=== PATIENT | male | born 1965 | race Caucasian/White ===

== ENCOUNTER → 2019-11-03 09:59 | Outpatient (BNVA) | payer SELFPAY | PROVIDERS: Family Provider Nurse Practitioner; PCP Nurse Practitioner; Visit Provider Nurse Practitioner | DX: M06.9 Rheumatoid arthritis, unspecified (principal) | CPT/HCPCS: 80053; 85025 ==

== ENCOUNTER → 2020-01-26 17:17 | Outpatient (BNVA) | payer SELFPAY | PROVIDERS: Family Provider Nurse Practitioner; PCP Nurse Practitioner; Visit Provider Nurse Practitioner | DX: M06.9 Rheumatoid arthritis, unspecified (principal); K64.9 Unspecified hemorrhoids; N52.9 Male erectile dysfunction, unspecified | CPT/HCPCS: 85025 ==

== ENCOUNTER → 2020-05-05 16:29 | Outpatient (BNVA) | payer SELFPAY | PROVIDERS: Family Provider Nurse Practitioner; PCP Nurse Practitioner; Visit Provider Nurse Practitioner | DX: M06.9 Rheumatoid arthritis, unspecified (principal) | CPT/HCPCS: 80053; 85025 ==

== ENCOUNTER → 2020-08-01 10:04 | Outpatient (BNVA) | payer SELFPAY | PROVIDERS: Family Provider Nurse Practitioner; PCP Nurse Practitioner; Visit Provider Nurse Practitioner | DX: M06.9 Rheumatoid arthritis, unspecified (principal); K64.9 Unspecified hemorrhoids; N52.9 Male erectile dysfunction, unspecified | CPT/HCPCS: 80053; 85025 ==

== ENCOUNTER → 2020-09-28 11:05 | Outpatient (BNVA) | payer SELFPAY | PROVIDERS: Family Provider Nurse Practitioner; PCP Nurse Practitioner; Visit Provider Nurse Practitioner | DX: M10.9 Gout, unspecified (principal); M06.9 Rheumatoid arthritis, unspecified; R00.2 Palpitations | CPT/HCPCS: 72072; 72100; 73523; 80053; 84443; 84550; 85025; 85651; 86140 ==

== ENCOUNTER 2020-10-12 12:27 | Outpatient (CLI) | payer SELFPAY ==
--- NOTE | 2020-10-12 13:15 | CT_ITS ---
WS: [id number] CT HEAD TECHNIQUE: Noncontrast CT of the head obtained from the skullbase to the vertex. CLINICAL INFORMATION: R41.3 - Other amnesia COMPARISON: None. DLP: 992.[address] scans at [facility] use at least one of these dose optimization techniques: automat ed exposure control; mA and/or kV adjustment per patient size (includes targeted exams where dose is matched to clinical indication); or iterative reconstruction. FINDINGS: No evidence of intracranial hemorrhage or mass effect. Ventricular system and basal cisterns are levin nt. Mild parenchymal volume loss. No extra-axial fluid collections. No evidence of mass or mass effec t. Normal marquez-white differentiation. Paranasal sinuses and mastoid air cells are well aerated. .Normal visualized soft tissues. CT/CT head wo con* [id number] IMPRESSION: 1. No evidence of intracranial hemorrhage or mass effect. 2. Mild parenchymal volume loss. 3. No acute intracranial findings.
== END 2020-10-12 12:28 | disposition home or self-care (01) ==
LOC: RADWPI 12:44
PROVIDERS: PCP Nurse Practitioner; Visit Provider Nurse Practitioner
DX: R41.3 Other amnesia (principal)
CPT/HCPCS: 70450

== ENCOUNTER → 2021-01-10 09:07 | Outpatient (BNVA) | payer SELFPAY | PROVIDERS: PCP Nurse Practitioner; Visit Provider Nurse Practitioner | DX: M51.36 Other intervertebral disc degeneration, lumbar region (principal); M06.9 Rheumatoid arthritis, unspecified | CPT/HCPCS: 80053; 85025; 85651; 86140 ==

== ENCOUNTER → 2021-02-02 11:10 | Outpatient (BNVA) | payer SELFPAY | PROVIDERS: PCP Nurse Practitioner; Visit Provider Internal Medicine | DX: M06.9 Rheumatoid arthritis, unspecified (principal); M51.36 Other intervertebral disc degeneration, lumbar region; Z11.59 Encounter for screening for other viral diseases; Z11.1 Encounter for screening for respiratory tuberculosis; Z87.891 Personal history of nicotine dependence | CPT/HCPCS: 99203; 99204 ==

== ENCOUNTER → 2021-02-24 09:09 | Outpatient (BNVA) | payer SELFPAY | PROVIDERS: PCP Nurse Practitioner; Visit Provider Internal Medicine | DX: M06.9 Rheumatoid arthritis, unspecified (principal); D86.9 Sarcoidosis, unspecified; Z51.81 Encounter for therapeutic drug level monitoring; M32.9 Systemic lupus erythematosus, unspecified | CPT/HCPCS: 80053; 85025; 86480; 86704; 86803; 87340 ==

== ENCOUNTER 2021-03-09 10:49 | Outpatient (CLI) | payer OTHER, SELFPAY ==
--- NOTE | 2021-03-09 10:58 | XR_ITS ---
WS: [id number] Right hand, AP and lateral views, 03/09/2021 Clinical Data: RIGHT HAND PAIN Comparison: None. Findings: No fractures or dislocations are seen. The soft tissues are unremarkable. The joint space s are normal No periarticular demineralization or calcifications are seen. XR/XR hand RT 2V [id number] Impression: Negative right hand.
--- NOTE | 2021-03-09 10:59 | XR_ITS ---
WS: [id number] Cervical spine, 3 views, 03/09/2021 Clinical Data: NECK PAIN Comparison: None. Findings: No compression fractures are seen. There is disc space narrowing at C3-C4, C4-C5, C5-C6 and C6-C7. There is anterior longitudinal ligament calcification and osteophyte spurring at C3-C7. There is no prevertebral soft tissue swelling. The odontoid is unremarkable. The lung apices are normal. T here is minimal calcification in the soft tissue the neck bilaterally which may be in the carotid bif urcations. XR/XR cervical spine 3V* [id number] Impression: 1. Osteoarthritis with degenerative disc narrowing C3-C7. 2. Negative for fracture or dislocation.
== END 2021-03-09 10:50 | disposition home or self-care (01) ==
PROVIDERS: PCP Nurse Practitioner; Visit Provider Dermatology
DX: M79.641 Pain in right hand (principal); M54.2 Cervicalgia; M47.812 Spondylosis without myelopathy or radiculopathy, cervical region
CPT/HCPCS: 72040; 73120

== ENCOUNTER → 2021-03-19 10:43 | Outpatient (BNVA) | payer SELFPAY | PROVIDERS: PCP Nurse Practitioner; Visit Provider Nurse Practitioner Family | DX: S89.91XA Unspecified injury of right lower leg, initial encounter (principal); S80.911A Unspecified superficial injury of right knee, initial encounter; W18.42XA Slipping, tripping and stumbling without falling due to stepping into hole or opening, initial encounter; Z68.21 Body mass index [BMI] 21.0-21.9, adult; F17.211 Nicotine dependence, cigarettes, in remission; Z71.89 Other specified counseling | CPT/HCPCS: 73562 ==

== ENCOUNTER → 2021-05-16 09:44 | Outpatient (BNVA) | payer SELFPAY | PROVIDERS: PCP Family Medicine; Visit Provider Family Medicine | DX: Z79.899 Other long term (current) drug therapy (principal) | CPT/HCPCS: 80053; 85025; 85651; 86140 ==

== ENCOUNTER → 2021-08-15 10:56 | Outpatient (BNVA) | payer SELFPAY | PROVIDERS: PCP Family Medicine; Visit Provider Nurse Practitioner | DX: Z13.6 Encounter for screening for cardiovascular disorders (principal); M05.9 Rheumatoid arthritis with rheumatoid factor, unspecified; M51.36 Other intervertebral disc degeneration, lumbar region; Z87.891 Personal history of nicotine dependence | CPT/HCPCS: 80053; 80061; 85025 ==

== ENCOUNTER → 2021-11-09 09:29 | Outpatient (BNVA) | payer SELFPAY | PROVIDERS: PCP Nurse Practitioner; Visit Provider Nurse Practitioner | DX: M05.9 Rheumatoid arthritis with rheumatoid factor, unspecified (principal); Z13.6 Encounter for screening for cardiovascular disorders; M51.36 Other intervertebral disc degeneration, lumbar region; K64.9 Unspecified hemorrhoids; M06.9 Rheumatoid arthritis, unspecified | CPT/HCPCS: 80053; 85025; 85651 ==

== ENCOUNTER → 2022-02-01 14:47 | Outpatient (BNVA) | payer SELFPAY | PROVIDERS: PCP Nurse Practitioner; Visit Provider Nurse Practitioner | DX: M51.36 Other intervertebral disc degeneration, lumbar region (principal); K64.9 Unspecified hemorrhoids; M05.9 Rheumatoid arthritis with rheumatoid factor, unspecified; M06.9 Rheumatoid arthritis, unspecified | CPT/HCPCS: 80053; 85025 ==

== ENCOUNTER → 2022-05-02 11:52 | Outpatient (BNVA) | payer SELFPAY | PROVIDERS: PCP Nurse Practitioner; Visit Provider Nurse Practitioner | DX: M05.9 Rheumatoid arthritis with rheumatoid factor, unspecified (principal); M51.36 Other intervertebral disc degeneration, lumbar region; K64.9 Unspecified hemorrhoids; Z12.5 Encounter for screening for malignant neoplasm of prostate; M06.9 Rheumatoid arthritis, unspecified | CPT/HCPCS: 80053; 85025 ==

== ENCOUNTER → 2022-07-25 10:43 | Outpatient (BNVA) | payer SELFPAY | PROVIDERS: PCP Nurse Practitioner; Visit Provider Nurse Practitioner | DX: M05.9 Rheumatoid arthritis with rheumatoid factor, unspecified (principal); M51.36 Other intervertebral disc degeneration, lumbar region; Z12.5 Encounter for screening for malignant neoplasm of prostate; M06.9 Rheumatoid arthritis, unspecified; K06.9 Disorder of gingiva and edentulous alveolar ridge, unspecified | CPT/HCPCS: 80053; 85025; 85651; 86140; G0103 ==

== ENCOUNTER → 2022-10-17 08:51 | Outpatient (BNVA) | payer SELFPAY | PROVIDERS: PCP Nurse Practitioner; Visit Provider Nurse Practitioner | DX: M05.9 Rheumatoid arthritis with rheumatoid factor, unspecified (principal); M51.36 Other intervertebral disc degeneration, lumbar region; K64.9 Unspecified hemorrhoids | CPT/HCPCS: 80053; 85025 ==

== ENCOUNTER → 2023-01-09 08:55 | Outpatient (BNVA) | payer SELFPAY | PROVIDERS: PCP Nurse Practitioner; Visit Provider Nurse Practitioner | DX: Z13.6 Encounter for screening for cardiovascular disorders (principal); M06.9 Rheumatoid arthritis, unspecified | CPT/HCPCS: 80053; 80061; 85025; 85651; 86140 ==

== ENCOUNTER → 2023-04-18 11:17 | Outpatient (BNVA) | payer MEDICARE, SELFPAY | PROVIDERS: PCP Nurse Practitioner; Visit Provider Nurse Practitioner | DX: M06.9 Rheumatoid arthritis, unspecified (principal) | CPT/HCPCS: 80053; 84443; 85025 ==

== ENCOUNTER → 2023-07-29 12:10 | Outpatient (BNVA) | payer MEDICARE, SELFPAY | PROVIDERS: PCP Nurse Practitioner; Visit Provider Nurse Practitioner | DX: Z12.5 Encounter for screening for malignant neoplasm of prostate (principal); M06.9 Rheumatoid arthritis, unspecified | CPT/HCPCS: 80053; 85025; G0103 ==

== ENCOUNTER → 2023-10-22 12:16 | Outpatient (BNVA) | payer MEDICARE, SELFPAY | PROVIDERS: PCP Nurse Practitioner; Visit Provider Nurse Practitioner | DX: M05.9 Rheumatoid arthritis with rheumatoid factor, unspecified (principal) | CPT/HCPCS: 80053; 85025 ==

== ENCOUNTER → 2024-01-07 11:55 | Outpatient (BNVA) | payer MEDICARE, MEDICAID, SELFPAY | PROVIDERS: PCP Nurse Practitioner; Visit Provider Nurse Practitioner | DX: Z13.6 Encounter for screening for cardiovascular disorders (principal); M05.9 Rheumatoid arthritis with rheumatoid factor, unspecified | CPT/HCPCS: 80053; 80061; 85025; 85651 ==

== ENCOUNTER → 2024-04-15 09:22 | Outpatient (BNVA) | payer MEDICARE, MEDICAID, SELFPAY | PROVIDERS: PCP Nurse Practitioner; Visit Provider Nurse Practitioner | DX: M05.9 Rheumatoid arthritis with rheumatoid factor, unspecified (principal) | CPT/HCPCS: 80053; 85025; 85651 ==

== ENCOUNTER → 2024-07-07 13:20 | Outpatient (BNVA) | payer MEDICARE, MEDICAID, SELFPAY | PROVIDERS: PCP Nurse Practitioner; Visit Provider Nurse Practitioner | DX: Z87.891 Personal history of nicotine dependence (principal); M05.9 Rheumatoid arthritis with rheumatoid factor, unspecified | CPT/HCPCS: 80053; 85025 ==

== ENCOUNTER → 2024-10-05 09:49 | Outpatient (BNVA) | payer MEDICARE, MEDICAID, SELFPAY | PROVIDERS: PCP Nurse Practitioner; Visit Provider Nurse Practitioner | DX: Z13.6 Encounter for screening for cardiovascular disorders (principal); Z12.5 Encounter for screening for malignant neoplasm of prostate; M05.9 Rheumatoid arthritis with rheumatoid factor, unspecified; E55.9 Vitamin D deficiency, unspecified | CPT/HCPCS: 80053; 80061; 82306; 85025; G0103 ==

== ENCOUNTER 2024-10-12 07:26 | Outpatient (CLI) | payer MEDICAID, MEDICARE, SELFPAY ==
--- NOTE | 2024-10-12 07:29 | CT_ITS ---
WS: [id number] LDCT LUNG CANCER SCREENING HISTORY: Z87.891 - Personal history of nicotine dependence TECHNIQUE: Axial imaging performed from the apices to 1 cm below the costophrenic angles. Coronal and sagittal reformats are submitted with axial MIP series. All CT scans at [facility] use at least one of these dose optimization techniques: automated exposure control; mA and/or kV adjustment per patient size (includes targeted exams where dose is matched to clinical indication); or iterativ e reconstruction. DLP: 47.50 mGy.cm DIvol: Mean CTDIvol: 0.80 (mGy) COMPARISON: None available. Diagnostic quality: Satisfactory Lungs: Moderate pulmonary hyperexpansion. Scattered micronodules throughout both lungs. Single 4 mm n odule in the LEFT lower lobe. There is a linear scar in the RIGHT middle lobe. No mass or endobronchi al lesions. Heart: Normal size heart with no pericardial effusion.. Other findings: Mild atherosclerosis aorta. Normal size pulmonary artery. Coronary artery calcificati ons. No mediastinal or hilar adenopathy. No adrenal mass. Innumerable low-attenuation masses througho ut the visualized and included liver. Masses range in size from a few millimeters to [address]/CT lung screening [id number] IMPRESSION: LUNG-RADS: 2S-Benign Appearance or Behavior with Significant Findings FOLLOW UP: 12 Month: Continue annual screening with LDCT OTHER FINDINGS (S MODIFIER): Numerous low-attenuation masses throughout the tomasz er. These may be cysts, metastatic sites or hemangiomas. Recommend follow-up MR I or CT abdomen and pelvis. Liver mass CT protocol should be utilized. This wou ld include with and without IV contrast protocol.
== END 2024-10-12 07:27 | disposition home or self-care (01) ==
LOC: RAD 07:29
PROVIDERS: PCP Nurse Practitioner; Visit Provider Nurse Practitioner
DX: Z12.2 Encounter for screening for malignant neoplasm of respiratory organs (principal); Z87.891 Personal history of nicotine dependence; R91.8 Other nonspecific abnormal finding of lung field; J98.4 Other disorders of lung; I70.0 Atherosclerosis of aorta; I25.10 Atherosclerotic heart disease of native coronary artery without angina pectoris; R16.0 Hepatomegaly, not elsewhere classified
CPT/HCPCS: 71271

== ENCOUNTER 2024-11-03 14:51 | Outpatient (CLI) | payer MEDICARE, MEDICAID, SELFPAY ==
--- NOTE | 2024-11-03 15:03 | MR_ITS ---
WS: [id number] MRI ABDOMEN WITH AND WITHOUT CONTRAST. COMPARISON: CT 10/12/2024 Multiplanar, multisequence imaging is performed with and without contrast. MultiHance 14 mL. History: Multiple hepatic masses noted on lung screening CT for which evaluation was recommended. Innumerable cysts are noted throughout the liver. These are T2 hyperintense masses and low signal on the T1 sequences with no enhancement. The largest cyst in the LEFT lobe measures 4.6 x 3.5 cm. No solid or enhancing masses are identified. No intrahepatic duct dilatation. Normal appearance of the portal vein. Normal gallbladder. Normal size spleen. No adrenal mass. Adrenal glands are not well visualized. Kidneys are normal size with no obstruction. No mass. Very tiny cortical cyst superior pole LEFT kidney. Mild atrophy of the pancreas. No enhancing masses. Normal size aorta. No adenopathy or ascites. Lung bases are clear. No GI tract obstruction. MR/MR abdomen wo/w con* [id number] IMPRESSION: 1. Numerous simple hepatic cysts noted throughout the liver. No solid mass or intrahepatic duct dilatation. 2. Negative gallbladder. 3. Tiny cortical cyst superior pole LEFT kidney. No renal obstruction.
== END 2024-11-03 14:52 | disposition home or self-care (01) ==
PROVIDERS: PCP Nurse Practitioner; Visit Provider Nurse Practitioner
DX: R16.0 Hepatomegaly, not elsewhere classified (principal); K76.89 Other specified diseases of liver; K86.89 Other specified diseases of pancreas
CPT/HCPCS: 74183

== ENCOUNTER → 2024-12-03 15:12 | Outpatient (BNVA) | payer MEDICARE, MEDICAID, SELFPAY | PROVIDERS: PCP Nurse Practitioner; Visit Provider Nurse Practitioner | DX: M05.9 Rheumatoid arthritis with rheumatoid factor, unspecified (principal) | CPT/HCPCS: 80053; 85025 ==

== ENCOUNTER → 2025-02-25 14:37 | Outpatient (BNVA) | payer MEDICARE, MEDICAID, SELFPAY | PROVIDERS: PCP Nurse Practitioner; Visit Provider Nurse Practitioner | DX: M05.9 Rheumatoid arthritis with rheumatoid factor, unspecified (principal); E55.9 Vitamin D deficiency, unspecified | CPT/HCPCS: 80053; 82306; 85025; 85651; 86140; 86160; 86162; 86200; 86235; 86255; 86376; 86431 ==

== ENCOUNTER → 2025-05-20 14:39 | Outpatient (BNVA) | payer MEDICARE, MEDICAID, SELFPAY | PROVIDERS: PCP Nurse Practitioner; Visit Provider Nurse Practitioner | DX: E55.9 Vitamin D deficiency, unspecified (principal); M05.9 Rheumatoid arthritis with rheumatoid factor, unspecified | CPT/HCPCS: 80053; 82306; 85025 ==

== ENCOUNTER → 2025-08-11 14:10 | Outpatient (BNVA) | payer MEDICARE, MEDICAID, SELFPAY | PROVIDERS: PCP Nurse Practitioner; Visit Provider Nurse Practitioner | DX: M05.9 Rheumatoid arthritis with rheumatoid factor, unspecified (principal) | CPT/HCPCS: 80053; 85025 ==